=== PATIENT | male | born 1975 | race African-American/Black ===

== ENCOUNTER 2017-09-02 19:54 | Inpatient (IN) | payer OTHER ==
[~2017-09-02] VITALS: Ht 185.4 cm; Wt 61.2 kg
[2017-09-02 19:55] VITALS: BP 109/78
[2017-09-02 20:22] LABS: HEMATOCRIT 36.8 % (42.0-52.0); HEMOGLOBIN 12.2 gm/dL (14.0-18.0); MCH 29.4 pg (26.0-34.0); MCHC 33.1 g/dL (28.0-37.0); MCV 88.8 fL (80.0-100.0); PLATELET COUNT 100 thou/uL (150-400); RBC 4.14 mil/uL (4.50-6.00); WBC 4.8 thou/uL (4.0-11.0)
[2017-09-02 20:32] LABS: CALCIUM 7.9 mg/dL (8.5-10.1); CREATININE 0.7 mg/dL (0.7-1.3)
[2017-09-02 20:37] LABS: ALBUMIN 3.7 g/dL (3.4-5.0); TOTAL BILIRUBIN 1.7 mg/dL (<0.1-1.0); TOTAL PROTEIN 7.5 g/dL (6.4-8.2)
[2017-09-02 21:00] LABS: ABSOLUTE NEUTROPHILS 1.7 thou/uL (1.4-8.2)
[2017-09-02 21:03] LABS: ANISOCYTOSIS 2+; TARGET CELLS OCCASIONAL
[2017-09-02 22:36] VITALS: BP 121/83
[2017-09-02] MEDS ORDERED: LANTUS100 UNIT/M (23:14)
[2017-09-02] MEDS ORDERED: AMLODIPINE BESY10 MG PO (23:15)
[2017-09-02] MEDS ORDERED: OXYCONTIN10 M1 PO (23:16)
[2017-09-02] MEDS ORDERED: OXYCONTIN20 M1 (23:21)
[2017-09-03 00:05] LABS: URINE BILIRUBIN NEGATIVE (Negative); URINE BLOOD NEGATIVE (Negative); URINE CLARITY CLEAR; URINE COLOR YELLOW; URINE GLUCOSE-RANDOM* NEGATIVE (Negative); URINE KETONES NEGATIVE (Negative); URINE LEUKOCYTES NEGATIVE (Negative); URINE NITRITE NEGATIVE (Negative); URINE PROTEIN (DIPSTICK) TRACE (Negative); URINE UROBILINOGEN 0.2 E.U./dl (0.2-1.0)
[2017-09-03 00:23] LABS: AMP/METHAMP Negative (Negative); BARBITURATES Negative (Negative); BENZODIAZEPINES Negative (Negative); COCAINE Negative (Negative); METHADONE Negative (Negative); OPIATES Negative (Negative); PCP Negative (Negative)
[2017-09-03 04:33] VITALS: BP 132/84
[2017-09-03 06:29] LABS: CALCIUM 7.5 mg/dL (8.5-10.1); CREATININE 0.6 mg/dL (0.7-1.3); MAGNESIUM 1.6 mg/dL (1.8-2.4); PHOSPHORUS 2.9 mg/dL (2.5-4.9); POTASSIUM 3.6 mmol/L (3.5-5.1)
[2017-09-03 07:30] VITALS: BP 129/84
[2017-09-03 10:19] VITALS: BP 129/84
[2017-09-03 11:30] VITALS: BP 138/91
[2017-09-03 14:45] LABS: URINE BILIRUBIN NEGATIVE (Negative); URINE BLOOD TRACE (Negative); URINE CLARITY CLEAR; URINE COLOR YELLOW; URINE GLUCOSE-RANDOM* NEGATIVE (Negative); URINE KETONES NEGATIVE (Negative); URINE LEUKOCYTES NEGATIVE (Negative); URINE NITRITE NEGATIVE (Negative); URINE PROTEIN (DIPSTICK) 2+ (Negative); URINE SPECIFIC GRAVITY 1.025 (1.005-1.035)
[2017-09-03 14:52] LABS: AMP/METHAMP Negative (Negative); BARBITURATES Negative (Negative); BENZODIAZEPINES Negative (Negative); COCAINE Negative (Negative); METHADONE Negative (Negative); OPIATES POSITIVE (Negative); PCP Negative (Negative)
[2017-09-03 14:53] LABS: CASTS None Seen /LPF (None Seen); SQUAMOUS None Seen /LPF (0-3); URINE RBC 0-2 Rare /HPF (0-2)
[2017-09-03 14:54] LABS: AMORPHOUS URATES Few /LPF (None Seen); BACTERIA 1-9 Few /HPF (None Seen); URINE WBC None Seen /HPF (0-5)
== END 2017-09-03 17:20 | disposition home or self-care (01) | DRG 897 ==
LOC: ER 19:54 → EROBS 21:08 → 4E 21:08
PROVIDERS: Hospitalist; Nurse Practitioner Acute Care; Physician Assistant
DX: F10.129 Alcohol abuse with intoxication, unspecified (principal); J44.1 Chronic obstructive pulmonary disease with (acute) exacerbation; F11.20 Opioid dependence, uncomplicated; K86.1 Other chronic pancreatitis; R10.9 Unspecified abdominal pain; R09.02 Hypoxemia; E11.9 Type 2 diabetes mellitus without complications; J44.9 Chronic obstructive pulmonary disease, unspecified; I10 Essential (primary) hypertension; F17.210 Nicotine dependence, cigarettes, uncomplicated; F14.90 Cocaine use, unspecified, uncomplicated; G89.29 Other chronic pain; E87.6 Hypokalemia; E83.42 Hypomagnesemia; Z88.6 Allergy status to analgesic agent; Z88.8 Allergy status to other drugs, medicaments and biological substances; Z93.3 Colostomy status; Z90.81 Acquired absence of spleen
CPT/HCPCS: 10084